=== PATIENT | male | born 1980 | race Asian ===

== ENCOUNTER 2018-05-09 22:26 | Inpatient (IN) | payer BC ==
[~2018-05-09] VITALS: Ht 180.3 cm; Wt 76.2 kg
[2018-05-09 22:42] VITALS: Ht 180.3 cm; Wt 76.2 kg
[2018-05-09 23:32] LABS: PLATELET COUNT 210 x10^3mcL (130-400)
[2018-05-09 23:42] LABS: CALCIUM 9.6 mg/dL (8.5-10.1); CHLORIDE SERUM 104 mmol/L (98-107); GFR1 > 60 mL/min; GLUCOSE SERUM 118 mg/dL (74-106); POTASSIUM SERUM 3.9 mmol/L (3.5-5.1); SODIUM SERUM 141 mmol/L (136-145)
[2018-05-09 23:43] LABS: BASOPHIL % 0 % (0-2)
[2018-05-09 23:47] LABS: ALKALINE PHOSPHATASE 48 U/L (46-116); BILIRUBIN TOTAL 0.9 mg/dL (0.20-1.00); LIPASE 81 IU/L (73-393); TOTAL PROTEIN, SERUM 8.1 g/dL (6.4-8.2)
[2018-05-10 00:05] LABS: ALBUMIN 4.3 g/dL (3.4-5.0); ALT/SGPT 33 U/L (16-63); AST/SGOT 18 U/L (15-37)
[2018-05-10 01:58] LABS: MAGNESIUM 1.9 mg/dL (1.8-2.4); PHOSPHOROUS 2.9 mg/dL (2.5-4.9)
[2018-05-10 02:40] VITALS: BP 122/61
[2018-05-10 04:12] LABS: UA SPECIFIC GRAVITY >=1.030 (1.005-1.035); urine erythrocyte NEGATIVE (NEGATIVE)
[2018-05-10 04:16] LABS: microscopic required? YES
[2018-05-10 05:29] VITALS: BP 113/62
[2018-05-10 08:46] VITALS: BP 107/68
[2018-05-10 17:15] VITALS: BP 128/73
[2018-05-10 21:04] VITALS: BP 117/66
[2018-05-11 05:46] VITALS: BP 112/61
[2018-05-11 06:18] LABS: PLATELET COUNT 180 x10^3mcL (130-400); RED CELL DISTRIBUTION WIDTH 12.7 % (11.5-14.5)
[2018-05-11 06:35] LABS: CALCIUM 8.4 mg/dL (8.5-10.1); CARBON DIOXIDE 27.6 mmol/L (21-32); CHLORIDE SERUM 107 mmol/L (98-107); CREATININE SERUM 0.9 mg/dL (0.7-1.3); GFR1 > 60 mL/min; GLUCOSE SERUM 110 mg/dL (74-106); PHOSPHOROUS 2.4 mg/dL (2.5-4.9); POTASSIUM SERUM 4.1 mmol/L (3.5-5.1); SODIUM SERUM 141 mmol/L (136-145)
[2018-05-11 09:27] VITALS: BP 106/63
[2018-05-11] MEDS ORDERED: LEVAQUIN750 MG PO (10:43)
[2018-05-11] MEDS ORDERED: FLA500 PO (10:44)
[2018-05-11] MEDS ORDERED: NORCO1 TA2 PO (10:45)
[2018-05-11] MEDS ORDERED: LAC PO (10:45)
[2018-05-11 12:06] VITALS: BP 106/63
[2018-05-11 13:19] LABS: BAND NEUTROPHIL 7 % (0-10); SEGMENTED NEUTROPHILS 76 % (37-75)
[2018-05-11 13:20] LABS: METAMYELOCTE 1 % (0-2); MONOCYTE 5 % (0-7); PLATELET MORPHOLOGY PLATELETS NORMAL; rbc morphology (normal/abnorm) NORMAL (NORMAL)
== END 2018-05-11 13:28 | disposition home or self-care (01) | DRG 339 ==
LOC: ED 22:26 → MU 05-10 01:03
PROVIDERS: Emergency Medicine; Family Medicine; Surgery
PROC: 3E1M38Z Irrigation of Peritoneal Cavity using Irrigating Substance, Percutaneous Approach (ICD-10-PCS; 2018-05-10)
PROC: 0DTJ4ZZ Resection of Appendix, Percutaneous Endoscopic Approach (ICD-10-PCS; principal; 2018-05-10 14:00)
DX: K35.32 Acute appendicitis with perforation, localized peritonitis, and gangrene, without abscess (principal); Z68.1 Body mass index [BMI] 19.9 or less, adult
CPT/HCPCS: J1170; J2270; J2405; J2543; J3010; J3490; J7030